=== PATIENT | female | born 1990 | race Caucasian/White ===

== ENCOUNTER 2021-07-17 13:31 | Emergency (ER) | payer OTHER ==
[~2021-07-17] VITALS: Ht 162.6 cm; Wt 59.0 kg
== END 2021-07-17 17:19 | disposition home or self-care (01) ==
LOC: ER1 13:31
DX: Z23 Encounter for immunization (principal); U07.1 COVID-19; Z88.2 Allergy status to sulfonamides
CPT/HCPCS: 71045; 99283; M0243